=== PATIENT | female | born 2000 ===

== ENCOUNTER 2019-09-06 14:37 | Emergency (ER) | payer BC ==
--- NOTE | 2019-09-06 15:35 | CT ---
Exam: CT cervical spine without contrast HISTORY: Trauma. Pain. COMPARISON: None FINDINGS: No craniocervical dissociation. Appropriate alignment of the lateral masses of C1 and C2. Intact odon toid process Appropriate alignment of the facets. There is reversal cervical lordosis centered at the C3 5 level. There is slight widening of the C5-C6 interspinous distance. Findings may be due to patient position, muscle spasm or cervical collar. Current study does not assess for ligamentous injury. Soft tissue neck structures: No mass, lymphadenopathy or hematoma. No prevertebral soft tissue swelli ng. Upper mediastinum and lung apices: Unremarkable Central spinal canal: Neural foramina and central spinal canal are patent. Evaluation is limited by t echnique Vertebral bodies: Cervical spine vertebral body height is maintained. No fracture. IMPRESSION: 1. No cervical spine fracture. 2. Cervical alignment is described above. If there is concern for ligamentous injury, consider MRI.
--- NOTE | 2019-09-06 15:35 | CT ---
HEAD CT SCAN WITHOUT IV CONTRAST: Date: 09/06/2019 HISTORY: Injury from trauma. FINDINGS: No focal mass or midline shift. No intra or extra-axial hemorrhage. Minimal sinus mucosal changes and some mucus in the dependent portion of the sphenoid sinus. The mastoids are clear. IMPRESSION: No significant acute intracranial process. No mass or bleed. POS: [facility]
[2019-09-06] MEDS ORDERED: Ketorolac Tromethamine 30 MG/ML VIAL ONE (16:00)
== END 2019-09-06 17:53 | disposition home or self-care (01) ==
LOC: ERS 14:37
DX: S09.90XA Unspecified injury of head, initial encounter (principal); M54.2 Cervicalgia; Z79.899 Other long term (current) drug therapy; V49.9XXA Car occupant (driver) (passenger) injured in unspecified traffic accident, initial encounter
CPT/HCPCS: 70450; 72125; J1885